=== PATIENT | female | born 1975 | race Caucasian/White ===

== ENCOUNTER → 2020-08-29 13:11 | Outpatient (BNVA) | payer OTHER, SELFPAY | PROVIDERS: Visit Provider Physician Assistant Medical | DX: S76.311A Strain of muscle, fascia and tendon of the posterior muscle group at thigh level, right thigh, initial encounter (principal); W31.89XA Contact with other specified machinery, initial encounter | CPT/HCPCS: 99202 ==

== ENCOUNTER → 2020-09-03 14:05 | Outpatient (BNVA) | payer OTHER, SELFPAY | PROVIDERS: Visit Provider Physician Assistant Medical | DX: S76.311A Strain of muscle, fascia and tendon of the posterior muscle group at thigh level, right thigh, initial encounter (principal); W31.89XA Contact with other specified machinery, initial encounter | CPT/HCPCS: 99213 ==

== ENCOUNTER → 2020-09-09 14:02 | Outpatient (BNVA) | payer OTHER, SELFPAY | PROVIDERS: Visit Provider Physician Assistant Medical | DX: S76.311D Strain of muscle, fascia and tendon of the posterior muscle group at thigh level, right thigh, subsequent encounter (principal); X58.XXXD Exposure to other specified factors, subsequent encounter | CPT/HCPCS: 99213 ==

== ENCOUNTER 2020-09-11 19:25 | Outpatient (REF) | payer OTHER, SELFPAY ==
--- NOTE | 2020-09-11 | MR_ITS ---
EXAMINATION: MRI OF THE RIGHT FEMUR WITHOUT CONTRAST CLINICAL INFORMATION: Hematoma. Hamstring tear. COMPARISON: None TECHNIQUE: Multiplanar MR imaging of the right thigh was performed on a 1.5 Lottie magnet. FINDINGS: The semimembranosus tendon is torn at the origin on the ischial tuberosity with distal retraction by 8 cm. There is mild intramuscular edema at the myotendinous junction. A small multilocular fluid collection at the site of the retracted tendon measures 2.5 x 1.5 x 9 cm. No additional tendon tears are identified. There is mild tendinosis at the conjoined tendon of the long head of the biceps femoris and the semitendinosus. Musculature is otherwise unremarkable. Moderate osteitis pubis. No fracture or malalignment. Bone marrow signal is normal. Osteomyelitis in the right knee is partially imaged on this study. No adenopathy. MR/MR femur RT wo con IMPRESSION: Complete tear of the semimembranosus at its origin with distal retraction by 8 cm and an associated hematoma around the retracted tendon.
== END 2020-09-11 19:26 | disposition home or self-care (01) ==
LOC: HO.MRI 19:25
PROVIDERS: Visit Provider Internal Medicine
DX: S76.911A Strain of unspecified muscles, fascia and tendons at thigh level, right thigh, initial encounter (principal); S70.11XA Contusion of right thigh, initial encounter
CPT/HCPCS: 73718

== ENCOUNTER → 2020-09-18 10:52 | Outpatient (BNVA) | payer OTHER, SELFPAY | PROVIDERS: Visit Provider Physician Assistant | DX: S76.311D Strain of muscle, fascia and tendon of the posterior muscle group at thigh level, right thigh, subsequent encounter (principal); X58.XXXD Exposure to other specified factors, subsequent encounter | CPT/HCPCS: 99213 ==

== ENCOUNTER → 2020-09-20 10:09 | Outpatient (BNVA) | payer OTHER, SELFPAY | PROVIDERS: Visit Provider Orthopaedic Surgery | DX: S76.311A Strain of muscle, fascia and tendon of the posterior muscle group at thigh level, right thigh, initial encounter (principal) | CPT/HCPCS: 99202 ==

== ENCOUNTER 2020-10-02 14:00 | Outpatient (RCR) | payer OTHER, SELFPAY ==
--- NOTE | 2020-09-06 15:41 | MHC.PT.EP ---
[facility] [place] [facility] [place] [facility] [place] Office [address] Mitch Patterson [address] [phone] F: [phone] F: [phone] F: [phone] F: [phone] Physical Therapy Plan of Care Date of Evaluation: 09/06/20 Date of Surgery: Diagnosis: right hamstring tear Assessment: The patient had reduced ROM, and strength in her right hamstring. Significant ecchymosis in right hamstring near distal attachment of biceps femoris. Pt has a relatively normal gait pattern with a slightly shorter step length on right LE. Frequency and Duration: The patient will be seen 2x/week for 4 weeks Short Term Goals: 1. Pt to be able to take normal stride length during gait. x 3 weeks 2. Pt to be able to have symmetrical ROM in hamstring x 3 weeks Usp Goals: 4 weeks 1. Pt to have 5/5 strength with knee flexion to have functional stength 2. Pt to have normal functional mobility without pain. 3. Pt to return to work simulation activities pain free. Treatment Plan: Modalities to reduce pain, spasms and effusion. Manual therapy to restore motion and function. Therapeutic exercise to improve strength and flexibility. Neuromuscular re-education for posture and balance. Therapeutic activities to return to functional activities of daily living. Please sign and return to therapist. Thank you for your referral.
--- NOTE | 2020-10-18 09:02 | MHC.PT.DC ---
[facility] [place] Office [place] Office [place] Office [address] [phone] F: [phone] F: [phone] F: [phone] F: [phone] Physical Therapy Discharge Report Diagnosis: right hamstring tear Date of Surgery: AUG 29, 2020 Date of Evaluation: 09/06/20 Date of Discharge: 10/02/20 Treatments to Date: 9 Cancellations to Date: 0 No Shows to Date: 0 Discharge Status: Discharge Summary: pt doing well. Had to reschedule her work connection appt. All ex done without pain. D/C to [facility]. Electronically signed by: Zenia Arriaza PT, DPT Please sign and return to therapist. Thank you for your referral.
== END 2020-10-18 13:25 | disposition other institution (70) ==
LOC: HO.PT 14:00
PROVIDERS: Visit Provider Physician Assistant Medical
DX: S76.311D Strain of muscle, fascia and tendon of the posterior muscle group at thigh level, right thigh, subsequent encounter (principal); S70.11XD Contusion of right thigh, subsequent encounter; X58.XXXD Exposure to other specified factors, subsequent encounter
CPT/HCPCS: 97110; 97112; 97140; 97162

== ENCOUNTER → 2020-11-14 11:46 | Outpatient (BNVA) | payer OTHER, SELFPAY | PROVIDERS: Visit Provider Physician Assistant Medical | DX: Z13.89 Encounter for screening for other disorder (principal) | CPT/HCPCS: 99213 ==

== ENCOUNTER 2024-07-13 08:32 | Outpatient (AMB) | payer BC, SELFPAY ==
[2024-07-13 08:36] VITALS: BP 116/70; PULSE 56; TEMP 36.7; O2SAT 97; BMI 46.6
--- NOTE | 2024-07-13 08:36 | MHC.OFFWIV ---
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 Started Wednesday. No known injury. Patient Tobacco Use Status: Former Tobacco user Allergies No Known Allergies Allergy (Verified 07/13/24 08:40) Do you need a note to return to daycare/school/sports/work: No HPI INTERN BRAND LT knee pain/unable to bend HPI Details This note is constructed using voice recognition software. While every effort has been made to ensure accuracy, food order expediter errors may have been included. The patient is a 49 year old female who presents to the clinic today with left lateral knee pain for the past 2 days without known injury. 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 She recalls feeling pain in the lateral aspect of her left knee, and then it made it difficult to want to bend her knee. She reports that she is able to bend it, however there is a decent amount of pain. She is limping when she is walking. She did try ibuprofen which helped, as well as a compressive sleeve which seemed to help the pain quite a bit. She denies trauma, previous surgery, erythema, warmth to the area. [facility] Medical History (Updated 09/20/20 @ 10:34 by Masrhal Holbrook MD) A-fib Surgical History (Updated 09/20/20 @ 10:17 by Reina Noonan CMA) Previous section History of cholecystectomy Social History (Updated 09/20/20 @ 10:17 by Reina Noonan CMA) Patient Tobacco Use Status: Former Tobacco user Current occupational status: employed Current occupation: Kitchen - Right Handed Review of Systems Const All systems reviewed & are unremarkable except as noted in HPI and below Physical Exam Vital Signs: Last Vital Signs Temp 98.1 F 07/13/24 08:36 Pulse 56 07/13/24 08:36 BP 116/70 07/13/24 08:36 Pulse Ox 97 07/13/24 08:36 Oxygen Delivery Method Room Air 07/13/24 08:36 BMI result Body Mass Index 46.6 Const General: cooperative, healthy appearing, comfortable, no acute distress and alert Orientation/consciousness: patient oriented x3 Limitations: no limitations Skin General skin exam: no rashes or lesions noted, elasticity normal and turgor normal Neuro General: patient oriented x3 Extrem Other: Medial joint line tenderness on valgus maneuver of left knee. Tender to palpation in the same area. No erythema, warmth, ecchymosis, or edema. General: Yes normal to inspection, Yes full ROM, Yes capillary refill normal and Yes normal exam except as noted Psych Appearance: grossly normal Mental Status: mental status grossly normal Speech and movement: Normal speech and movement present Affect: normal affect Assessment & Plan Assessment & Plan (1) Left knee pain: Code(s): M25.562 - Pain in left knee Qualifiers: Chronicity: acute Qualified Code(s): M25.562 - Pain in left knee Plan: History and physical examination likely consistent with low-grade strain. Advised rest, ice, compression, elevation, and NSAIDs for pain. X-ray today to rule out any additional etiology, however we do not anticipate that this will be the case. We will call patient with results when radiology read available. Advised follow up with PCP with worsening or failure to resolve. Plan See above for full details and plan. Orders: Orders XR knee LT 3V Today M25.562 - Pain in left knee Coding Level of Care Code Est Pt Level 4 (80509) Diagnoses Acute pain of left knee M25.562 Chronicity: acute
== END 2024-07-13 10:08 | disposition home or self-care (01) ==
PROVIDERS: PCP Nurse Practitioner Gerontology; Visit Provider Registered Nurse
DX: M25.562 Pain in left knee (principal)
CPT/HCPCS: 99214

== ENCOUNTER 2024-07-13 09:11 | Outpatient (REF) | payer BC, SELFPAY ==
--- NOTE | ~2024-07-13 | XR_ITS ---
EXAMINATION: XR KNEE, LEFT CLINICAL INFORMATION: Left knee pain COMPARISON: None available. TECHNIQUE: Four views of the left knee. FINDINGS: Mild bicompartmental degenerative changes are present with minimal narrowing of the medial compartment and posterior patellar osteophytes and some mild sclerosis. Small joint effusion may be present. There is no chondrocalcinosis. No fractures or dislocations. XR/XR knee LT 4V IMPRESSION: Mild bicompartmental degenerative changes with possible small joint effusion. Electronically signed by: Ramana Pena MD 07/13/2024 09:39 AM EDT
== END 2024-07-13 09:12 | disposition home or self-care (01) ==
LOC: HO.HMGCX 09:11
PROVIDERS: PCP Nurse Practitioner Gerontology; Visit Provider Registered Nurse
DX: M25.562 Pain in left knee (principal)
CPT/HCPCS: 73564